=== PATIENT | male | born 1955 | race American Indian/Alaskan Native ===

== ENCOUNTER 2021-08-31 11:30 | Emergency (ER) | payer MEDICARE ==
--- NOTE | 2021-08-31 11:53 | Emergency Department Report ---
ED CPR HPI - General Chief Complaint: Cardiac Arrest/CPR Stated Complaint: CARDIAC ARREST Time Seen by Provider: 08/31/21 11:52 Source: EMS (Verbal report received from emergency medical services. EMS documentation not available at time of chart dictation ), RN notes reviewed Mode of arrival: Stretcher Limitations: Altered Mental Status, Physical Limitation, Other - History of Present Illness Initial Comments: The patient was evaluated in the emergency department for symptoms described in the history of present illness. He/she was evaluated in the context of the global COVID-19 pandemic, which necessitated consideration that the patient might be at risk for infection with the virus that causes COVID-19. Institutional protocols and algorithms that pertain to the evaluation of patients at risk for COVID-19 are in a state of rapid change based on information released by regulatory bodies including the CDC and federal and state organizations. These policies and algorithms were followed during the patient's care in the emergency department. Please note that these policies, procedures and recommendations changed on a rapid basis. The patient is a 65-year-old gentleman. He is not known to myself previously. He is brought to the hospital by emergency medical services as an out of hospital with nontraumatic cardiac arrest. Patient a arrives with a GCS of 3 receiving [id number] ventilation. EMS reports patient's family did not start CPR. EMS reports no shockable rhythm in the field. EMS unable to obtain IV or IO access in the field. EMS reports performing CPR for at least 20 to 25 minutes prior to ER arrival -: minute(s) Place: home Initial Findings in the Field: PEA ROSC in the Field: No Associated Injuries: No Treatments Prior to Arrival: intubation, chest compressions ED Review of Systems ROS: Stated complaint: CARDIAC ARREST Other details as noted in HPI Comment: Unobtainable due to pts medical conditions ED Physical Exam - General Limitations: Altered Mental Status, Physical Limitation, Other General appearance: obtunded - Head Head exam: Present: atraumatic, normocephalic - Eye Eye exam: Present: other (Pupils midpoint, and do not react to light). Absent: normal appearance - ENT ENT exam: Present: normal exam, normal orophraynx, mucous membranes moist, normal external ear exam, other (Endotracheal tube noted in the oropharynx) - Neck Neck exam: Present: normal inspection, full ROM - Respiratory Respiratory exam: Present: other (Patient is not breathing). Absent: normal lung sounds bilaterally, respiratory distress - Cardiovascular Cardiovascular Exam: Present: other (The patient is pulseless). Absent: systolic murmur, diastolic murmur, rubs, gallop - GI/Abdominal GI/Abdominal exam: Present: soft, distended, hernia - Rectal Rectal exam: Present: deferred - Extremities Exam Extremities exam: Present: normal inspection - Back Exam Back exam: Present: normal inspection - Neurological Exam Neurological exam: Present: altered, other (Nonverbal, GCS of 3) - Psychiatric Psychiatric exam: Present: other (The patient is nonverbal) - Skin Skin exam: Present: warm, dry, intact, normal color. Absent: rash ED Medical Decision Making - Medical Decision Making Differential diagnosis, including but not limited to: PE, ACS, intracranial hemorrhage, aortic dissection Assessment and plan: 65-year-old gentleman presenting as out of hospital cardiac arrest. He is pulseless, and does not have a shockable rhythm. Bedside point- of-care transthoracic echocardiogram shows cardiac standstill without coordinated ventricular activity. Resuscitative efforts were terminated secondary to medical futility. His family is subsequently informed. Critical care attestation.: If time is entered above; I have spent that time in minutes in the direct care of this critically ill patient, excluding procedure time. ED Disposition Clinical Impression: Cardiac arrest Disposition: 20 Is pt being admited?: No Does the pt Need Aspirin: No Condition: Undetermined
== END 2021-08-31 12:00 ==
LOC: ED 11:30 → EDBD 11:30 → ED 12:00
DX: I46.9 Cardiac arrest, cause unspecified (principal)
CPT/HCPCS: 99285